=== PATIENT | male | born 1950 | race Caucasian/White ===

== ENCOUNTER → 2016-12-14 | Outpatient (CLI) | payer OTHER, BC ==
--- NOTE | ~2016-12-14 | 2DMMODE ---
[facility] [address] [place] [address] 2 D/M-MODE ECHOCARDIOGRAM Name: RANI BENOIT Room #: REG [facility]#: [id number] Admission: 12/14/16 Attend Phys: Michael Mcknight MD Discharge: Date of : 48 Date of Service: 12/14/16 1501 Report #: [id number] THIS REPORT FOR: //name// APPROVED REPORT Study performed: 12/14/2016 10:54:33 EXAM: Comprehensive 2D, Doppler, and color-flow Echocardiogram Patient Location: Echo lab Status: routine BSA: 1.91 BP: 170/107 mmHg Other Information Study Quality: Good Indications Elevated calcium score 2D Dimensions RVDd: 30.93 mm LVEF(%): 73.19 (>50%) IVSd: 10.81 (7-11mm) LVOT Diam: 18.68 (18-24mm) LVDd: 44.69 mm PWd: 12.18 (7-11mm) Ascending Ao: 31.96 (22-36mm) LVDs: 25.90 (25-40mm) Aortic Root: 31.82 mm IVC: 11.00 mm Pelletier's LVEF: 73.19 % Volumes Left Atrial Volume (Systole) Single Plane 4CH: 24.77 mL Single Plane 2CH: 41.53 mL LA ESV Index: 21.00 mL/m2 Aortic Valve AoV Peak Jimmy.: 1.60 m/s AO Peak Gr.: 10.25 mmHg LVOT Max P.46 mmHg LVOT Max V: 1.06 m/s ÁLVARO Vmax: 1.81 cm2 Mitral Valve E/A Ratio: 1.1 MV Decel. Time: 164.31 ms MV E Max Jimmy.: 1.00 m/s [facility] [address] [place] [address] 2 D/M-MODE ECHOCARDIOGRAM Name: RANI BENOIT Room #: REG [facility]#: [id number] Admission: 12/14/16 Attend Phys: Michael Mcknight MD Discharge: Date of : 48 Date of Service: 12/14/16 1501 Report #: [id number] MV A Jimmy.: 0.91 m/s MV PHT: 47.65 ms IVRT: 93.43 ms Pulmonary Valve PV Peak Jimmy.: 1.58 m/s PV Peak Gr.: 10.01 mmHg Pulmonary Vein P Vein S: 0.78 m/s P Vein A: 0.37 m/s P Vein D: 0.80 m/s P Vein A Dur.: 176.5 msec P Vein S/D Ratio: 0.98 Tricuspid Valve RAP Estimate: 5.00 mmHg Left Ventricle The left ventricle is normal size. There is normal left ventricular wall thickness. The left ventricular systolic function is normal. The left ventricular ejection fraction is within the normal range. LVEF is 60%. Grade I - abnormal relaxation pattern. Right Ventricle The right ventricle is normal size. The right ventricular systolic function is normal. Atria The left atrium size is normal. The right atrium size is normal. Aortic Valve The aortic valve is normal in structure. No aortic regurgitation is present. There is no aortic valvular stenosis. Mitral Valve The mitral valve is normal in structure. Trace mitral regurgitation. No evidence of mitral valve stenosis. Tricuspid Valve The tricuspid valve is normal in structure. There is no tricuspid valve regurgitation noted. Unable to assess PA pressure. Pulmonic Valve The pulmonary valve is normal in structure. Mild pulmonic regurgitation. Great Vessels [facility] [address] [place] [address] 2 D/M-MODE ECHOCARDIOGRAM Name: RANI BENOIT JIMI Room #: REG [facility]#: [id number] Admission: 12/14/16 Attend Phys: Michael Mcknight MD Discharge: Date of : 48 Date of Service: 12/14/16 1501 Report #: [id number] The aortic root is normal in size. IVC is normal in size and collapses >50% with inspiration. Pericardium There is no pericardial effusion. <Conclusion> The left ventricle is normal size. The left ventricular systolic function is normal. The right ventricle is normal size. The left atrium size is normal. The aortic valve is normal in structure. Trace mitral regurgitation. There is no pericardial effusion. <ELECTRONICALLY SIGNED> By: Michael Mcknight MD 12/14/16 150 00 00 Michael Mcknight MD /INF
== END ==
LOC: CV 10:35
DX: R93.1 Abnormal findings on diagnostic imaging of heart and coronary circulation (principal)

== ENCOUNTER → 2019-09-18 | Outpatient (CLI) | payer OTHER, BC | LOC: SJCVC 10:14 | PROVIDERS: ATTEND Internal Medicine Cardiovascular Disease | DX: I25.10 Atherosclerotic heart disease of native coronary artery without angina pectoris (principal); I10 Essential (primary) hypertension; E78.00 Pure hypercholesterolemia, unspecified; R60.9 Edema, unspecified; E78.5 Hyperlipidemia, unspecified; Z79.82 Long term (current) use of aspirin; Z79.899 Other long term (current) drug therapy; Z82.49 Family history of ischemic heart disease and other diseases of the circulatory system ==

== ENCOUNTER → 2019-09-18 | Outpatient (CLI) | payer OTHER, BC ==
--- NOTE | 2019-09-18 10:19 | EXE ---
Former[facility] [place] [address] STRESS ECHOCARDIOGRAM Name: RANI BENOIT Room #: REG [facility].#: [id number] Admission: 09/18/19 Attend Phys: Michael Mcknight MD Discharge: Date of : 48 Report #: [id number] THIS REPORT FOR: cc: Isaías Jaramillo MD, Stanley P. MD Park, Jin S. MD ~ THIS REPORT FOR: //name// APPROVED REPORT Study performed: 09/18/2019 09:17:00 Exam: Stress Echocardiogram Indication: History of high calcium score. Patient Location: Out-Patient/[facility] Echo lab Stress Nurse: VANESSA Adams Status: routine Ht: 5 ft 7 in HR: 69 bpm BP: 142/76 mmHg Rhythm: NSR Medical History Allergies: No known drug allergies Cardiac Risk Factors: HTN, Hyperlipidemia Procedure The patient underwent an Exercise Stress Test using the Luis Protocol. Blood pressure, heart rate, and EKG were monitored. An Echocardiogram was performed by communication technician in four stages in quad fashion. At peak stress, four selected images were obtained and placed side by side with resting images for comparison. Stress Test Details Stress Test: Exercise stress testing was performed using a Luis protocol. HR Resting HR: 69 bpm Max Heart Rate (APMHR): 151 bpm Max HR Achieved: 148 bpm Target HR (85% APMHR): 128 bpm % of APMHR: 98 Recovery HR: 85 bpm HR response to stress: Normal HR response to stress BP [facility] [address] [place] [address] STRESS ECHOCARDIOGRAM Name: RANI BENOIT Room #: REG [facility].#: [id number] Admission: 09/18/19 Attend Phys: Michael Mcknight MD Discharge: Date of : 48 Report #: [id number] Resting BP: 142/76 mmHg Max BP: 198/80 mmHg Recovery BP: 126/62 mmHg BP response to stress: Normal blood pressure response to stress. ECG Resting ECG: Sinus Rhythm, RBBB Stress ECG: Sinus Rhythm, RBBB ST Change: Non-ischemic Clinical Reason for Termination: Maximal effort Stress Symptoms: Fatigue Exercise duration: 7 min 46 sec Highest Stage Achieved: Stage 3: 3.4 mph at 14% grade. Exercise capacity: 10.10 METs Pre-Stress Echo The resting Echocardiogram showed normal left ventricular contractility with an estimated Ejection Fraction of about 55-60%. The resting echocardiogram demonstrated normal wall motion in all wall segments. Post-Stress Echo The stress Echocardiogram showed normal left ventricular contractility with an estimated Ejection Fraction of about 65-70%. Compared to rest, there were no stress-induced wall motion abnormalities. Clinical No clinical or ECG evidence for ischemia. Conclusion Clinical Response: Non-ischemic Exercise Capacity: Average Stress ECG Response: Non-ischemic Stress Echo Images: Non-ischemic The left ventricle is normal in size and wall thickness in both the rest and stress images. Other Information Study Quality: Adequate <Conclusion> [facility] [address] [place] [address] STRESS ECHOCARDIOGRAM Name: CYRANI JIMI Room #: REG [facility].#: [id number] Admission: 09/18/19 Attend Phys: Michael Mcknight MD Discharge: Date of : 48 Report #: [id number] The left ventricle is normal in size and wall thickness in both the rest and stress images. <ELECTRONICALLY SIGNED> By: Michael Mcknight MD 09/18/19 1018 Michael Mcknight MD /INF
== END ==
LOC: CV 09:00
PROVIDERS: ATTEND Internal Medicine Cardiovascular Disease
DX: I25.10 Atherosclerotic heart disease of native coronary artery without angina pectoris (principal)

== ENCOUNTER → 2020-09-23 | Outpatient (CLI) | payer OTHER, BC | LOC: SJCVCIMAG 08:38 | PROVIDERS: ATTEND Internal Medicine Cardiovascular Disease | DX: R94.31 Abnormal electrocardiogram [ECG] [EKG] (principal); I45.2 Bifascicular block; I45.10 Unspecified right bundle-branch block; I10 Essential (primary) hypertension; I25.10 Atherosclerotic heart disease of native coronary artery without angina pectoris; E78.00 Pure hypercholesterolemia, unspecified; R60.9 Edema, unspecified; E78.5 Hyperlipidemia, unspecified; Z79.82 Long term (current) use of aspirin; Z79.899 Other long term (current) drug therapy; Z72.89 Other problems related to lifestyle ==